=== PATIENT | male | born 1955 | race Caucasian/White ===

== ENCOUNTER 2017-08-08 06:59 | Inpatient (IN) | payer MEDICARE, OTHER ==
[~2017-08-08] VITALS: Ht 177.8 cm; Wt 95.0 kg
[~2017-08-08 06:59] MED LIST: AMIO200T57 PO; APIX5TAB3 PO; ATOR10TA PO; CARV-50 PO; CIPR-230 PO; CLON0.3T PO; CLOP75TA35 PO; DOCU-20 PO; DULO-31 PO; DULO60CA45 PO; FURO-150 PO; HYDR-4069 PO; HYDR-569 PO; INSU100V30 SQ; IPRA3AMP IH; LANTUS SUBCUT; METR500T4 PO; MIRT-92 PO; ONDA4TAB6 PO; PANT40TA39 PO; POTA20TA19 PO; SPIR25TA5 PO
[2017-08-08] MEDS ORDERED: furosemide 10 MG/1 ML 10ml inj IV ONE (07:15)
[2017-08-08] MEDS ORDERED: ipratropium/albuterol 3ml nebule NEB ONE (07:15)
[2017-08-08] MEDS ORDERED: verapamil 2.5 mg/ml inj IV ONE (07:15)
[2017-08-08] MEDS ORDERED: nitroGLYCERIN 0.4mg SUBLingual tab SL PRN (07:15)
[2017-08-08 07:34] LABS: BASOPHILS % (AUTO) 0.3 % (0-1); EOSINOPHILS # (AUTO) 0.1 X10'3 (0-0.9); EOSINOPHILS % (AUTO) 1.6 % (0-6); HEMATOCRIT 45.2 % (42.0-52.0); HEMOGLOBIN 15.3 g/dl (14.0-17.9); LYMPHOCYTES # (AUTO) 0.9 X10'3 (1.1-4.8); LYMPHOCYTES % (AUTO) 13.1 % (21-51); MEAN CORPUSCULAR HEMOGLOBIN 30.7 PG (27.0-31.0); MEAN CORPUSCULAR HGB CONC 33.9 % (33.0-36.5); MEAN CORPUSCULAR VOLUME 90.7 FL (78-98); MEAN PLATELET VOLUME 8.4 FL (7.4-10.4); MONOCYTES % (AUTO) 14.4 % (2-12); NEUTROPHILS % (AUTO) 70.6 % (42-75); PLATELET COUNT 193 X10'3 (140-440); RED BLOOD COUNT 4.98 X10'6 (4.70-6.10); RED CELL DISTRIBUTION WIDTH 16.8 % (11.5-14.5)
[2017-08-08] MEDS ORDERED: LISI10TA4 (07:40)
[2017-08-08] MEDS ORDERED: ATOR40TA (07:40)
[2017-08-08] MEDS ORDERED: CARV25TA2 (07:40)
[2017-08-08] MEDS ORDERED: FURO20TA4 (07:40)
[2017-08-08] MEDS ORDERED: DULO30CA51 (07:40)
[2017-08-08] MEDS ORDERED: CALC500T13 (07:40)
[2017-08-08] MEDS ORDERED: FLO0.4C (07:40)
[2017-08-08] MEDS ORDERED: DOCU-261 (07:40)
[2017-08-08] MEDS ORDERED: MIRT30TA8 (07:40)
[2017-08-08] MEDS ORDERED: OXYC-511 (07:40)
[2017-08-08] MEDS ORDERED: PANT40TA4 (07:40)
[2017-08-08] MEDS ORDERED: ALBU18HF2 (07:40)
[2017-08-08] MEDS ORDERED: ISOS30TA6 (07:40)
[2017-08-08] MEDS ORDERED: NITR0.4T48 (07:40)
[2017-08-08] MEDS ORDERED: BUDE10.2 (07:40)
[2017-08-08 07:41] LABS: ABG BASE EXCESS -2.9 mmol/L (-2.0-3.0); ABG PCO2 (T) 34.3 mmHg (35.0-48.0); ABG PH (T) 7.405 (7.350-7.450); ABG PO2 (T) 91.7 mmHg (83-108); ALLEN'S TEST Positive; FCOHb 0.7 % (0.5-1.5); FLOW 2 L/min; FMetHb 0.1 % (0.3-1.12); FO2Hb 96.2 % (94-100); TOTAL HEMOGLOBIN 15.2 G/dl (14.0-18.0)
[2017-08-08 07:48] LABS: ALANINE AMINOTRANSFERASE 31 U/L (12-78); ALBUMIN 3.6 G/DL (3.4-5.0); ALKALINE PHOSPHATASE 183 IU/L (46-116); ANION GAP 14 (8-16); ASPARTATE AMINO TRANSFERASE 19 U/L (10-37); BILIRUBIN,TOTAL 0.5 MG/DL (0.1-1.0); BLOOD UREA NITROGEN 25 MG/DL (7-18); BUN/CREATININE RATIO 15.8 (5.4-32.0); CALCIUM 8.8 MG/DL (8.5-10.1); CHLORIDE 104 MMOL/L (99-107); CREATININE 1.58 MG/DL (0.60-1.10); GLUCOSE 284 MG/DL (70-104); POTASSIUM 3.6 MMOL/L (3.5-5.1); SODIUM 139 MMOL/L (135-145); TOTAL CARBON DIOXIDE 21.5 MMOL/L (24-32); TOTAL PROTEIN 7.1 G/DL (6.4-8.2); eGFR 45 ML/MIN
[2017-08-08 07:51] LABS: PARTIAL THROMBOPLASTIN TIME 26 SECONDS (22-32); PROTHROMBIN TIME 10.3 SECONDS (9.0-12.0)
[2017-08-08] MEDS ORDERED: heparin 10,000 units/1 ML INJ IV ONE (08:00)
[2017-08-08] MEDS ORDERED: ondansetron/PF 4mg/2ml inj IV PRN (08:20)
[2017-08-08] MEDS ORDERED: magnesium/D5W IVPB 50 ML IV PRN (08:20)
[2017-08-08] MEDS ORDERED: magnesium hydroxide 30ml (MOM) UD suspension PO PRN (08:20)
[2017-08-08] MEDS ORDERED: ipratropium/albuterol 3ml nebule NEB PRN (08:20)
[2017-08-08] MEDS ORDERED: magnesium 4gm in 100ml NS 100 ML IV PRN (08:20)
[2017-08-08] MEDS: K and/or MAG REPLACEMENT MC SCH (08:20)
[2017-08-08] MEDS ORDERED: potassium Cl 20 mEq SR tablet PO PRN ×2 (08:20)
[2017-08-08] MEDS ORDERED: mag hydrox/Alum hydrox/simeth 30ml oral suspension PO PRN (08:20)
[2017-08-08] MEDS ORDERED: potassium Cl 40MEQ/NS 500ml 500 ML IV PRN ×2 (08:20)
[2017-08-08] MEDS ORDERED: acetaminophen 325mg tablet PO PRN (08:20)
[2017-08-08] MEDS ORDERED: amiodarone 200mg tablet PO ONE ×2 (08:25→18:10)
[2017-08-08] MEDS ORDERED: heparin 10,000 units/1 ML INJ IV PRN (08:25)
[2017-08-08 11:00] VITALS: BP 172/108
[2017-08-08] MEDS ORDERED: glucagon, human recombinant 1mg kit SUBCUT PRN (12:45)
[2017-08-08] MEDS ORDERED: MESSAGE TO PHARMACY PO ONE (12:45)
[2017-08-08] MEDS ORDERED: dextrose ORAL solution 15 GM/59 ML bottle PO PRN ×2 (12:45)
[2017-08-08] MEDS ORDERED: dextrose 50%-water 50ml dispensing syringe IV PRN ×2 (12:45)
[2017-08-08 14:29] LABS: HEMOGLOBIN A1C 7.3 % (4.5-6.2)
[2017-08-08] MEDS: insulin Lispro (HumaLOG) vial - multi-dose SQ SCH (14:53)
[2017-08-08 15:00] VITALS: BP 132/82
[2017-08-08 18:00] VITALS: BP 116/48
[2017-08-08] MEDS: apixaban 5mg tablet PO SCH (20:41)
[2017-08-08] MEDS: carVEDilol 12.5mg tablet PO SCH (20:41)
[2017-08-08] MEDS ORDERED: potassium chloride 10mEq ER tablet PO ONE (21:05)
[2017-08-08] MEDS: insulin glargine (Lantus) pen - multi-dose SQ SCH (22:23)
[2017-08-08 22:45] VITALS: BP 125/48
[2017-08-08] MEDS ORDERED: HYDROcodone/acetaminophen 10/325mg tab PO ONE (23:40)
[2017-08-09] MEDS ORDERED: verapamil 2.5 mg/ml inj IV ONE (02:55)
[2017-08-09] MEDS: verapamil SR 120mg (sust. release) tab PO SCH ×2 (03:33→08:15)
[2017-08-09 03:42] VITALS: BP 140/71
[2017-08-09 05:18] LABS: BASOPHILS % (AUTO) 0.4 % (0-1); EOSINOPHILS # (AUTO) 0.1 X10'3 (0-0.9); EOSINOPHILS % (AUTO) 2.3 % (0-6); HEMATOCRIT 42.7 % (42.0-52.0); HEMOGLOBIN 14.3 g/dl (14.0-17.9); LYMPHOCYTES # (AUTO) 0.9 X10'3 (1.1-4.8); LYMPHOCYTES % (AUTO) 14.9 % (21-51); MEAN CORPUSCULAR HEMOGLOBIN 30.4 PG (27.0-31.0); MEAN CORPUSCULAR HGB CONC 33.5 % (33.0-36.5); MEAN CORPUSCULAR VOLUME 90.9 FL (78-98); MEAN PLATELET VOLUME 8.5 FL (7.4-10.4); MONOCYTES % (AUTO) 16.9 % (2-12); NEUTROPHILS # (AUTO) 3.9 X10'3 (1.8-7.7); NEUTROPHILS % (AUTO) 65.5 % (42-75); PLATELET COUNT 192 X10'3 (140-440); RED CELL DISTRIBUTION WIDTH 16.5 % (11.5-14.5)
[2017-08-09 05:53] LABS: ALANINE AMINOTRANSFERASE 23 U/L (12-78); ALBUMIN 3.2 G/DL (3.4-5.0); ALKALINE PHOSPHATASE 139 IU/L (46-116); ANION GAP 11 (8-16); ASPARTATE AMINO TRANSFERASE 18 U/L (10-37); BILIRUBIN,TOTAL 0.5 MG/DL (0.1-1.0); BLOOD UREA NITROGEN 30 MG/DL (7-18); BUN/CREATININE RATIO 20.8 (5.4-32.0); CALCIUM 8.9 MG/DL (8.5-10.1); CHLORIDE 104 MMOL/L (99-107); CHOL/HDL RATIO 4.8 (0.00-4.99); CHOLESTEROL 163 MG/DL (0-200); CREATININE 1.44 MG/DL (0.60-1.10); GLUCOSE 202 MG/DL (70-104); HDL CHOLESTEROL 34 MG/DL (35-60); LDL CHOLESTEROL 100 MG/DL (50-100); MAGNESIUM 2.1 MG/DL (1.5-2.4); SODIUM 140 MMOL/L (135-145); TOTAL CARBON DIOXIDE 25.2 MMOL/L (24-32); TOTAL PROTEIN 6.4 G/DL (6.4-8.2); TRIGLYCERIDES 228 MG/DL (20-135); eGFR 50 ML/MIN
[2017-08-09] MEDS ORDERED: amiodarone 200mg tablet PO SCH (08:00)
[2017-08-09] MEDS: K and/or MAG REPLACEMENT MC SCH (08:00)
[2017-08-09] MEDS: furosemide 40mg/4ml inj IV SCH (08:14)
[2017-08-09] MEDS: carVEDilol 12.5mg tablet PO SCH ×2 (08:15→21:23)
[2017-08-09] MEDS: lisinopril 10 MG tablet PO SCH (08:15)
[2017-08-09] MEDS: clopidogrel 75mg tablet PO SCH (08:15)
[2017-08-09] MEDS: apixaban 5mg tablet PO SCH ×2 (08:15→21:24)
[2017-08-09 09:00] VITALS: BP 140/76
[2017-08-09 11:00] VITALS: BP 97/53
[2017-08-09] MEDS: insulin Lispro (HumaLOG) vial - multi-dose SQ SCH (13:41)
[2017-08-09 15:00] VITALS: BP 120/70
[2017-08-09 19:00] VITALS: BP 103/47
[2017-08-09] MEDS: tamsulosin 0.4mg capsule PO SCH (21:00)
[2017-08-09] MEDS: amiodarone 200mg tablet PO SCH (21:23)
[2017-08-09] MEDS: insulin glargine (Lantus) pen - multi-dose SQ SCH (21:28)
[2017-08-09 23:00] VITALS: BP 102/52
[2017-08-10] VITALS (7 sets, daily range): BP systolic 82–123; BP diastolic 50–73
[2017-08-10 07:47] LABS: BASOPHILS % (AUTO) 0.4 % (0-1); EOSINOPHILS # (AUTO) 0.1 X10'3 (0-0.9); EOSINOPHILS % (AUTO) 1.8 % (0-6); HEMATOCRIT 40.2 % (42.0-52.0); HEMOGLOBIN 13.3 g/dl (14.0-17.9); LYMPHOCYTES # (AUTO) 1.1 X10'3 (1.1-4.8); LYMPHOCYTES % (AUTO) 14.1 % (21-51); MEAN CORPUSCULAR HEMOGLOBIN 30.1 PG (27.0-31.0); MEAN CORPUSCULAR HGB CONC 33.2 % (33.0-36.5); MEAN CORPUSCULAR VOLUME 90.8 FL (78-98); MEAN PLATELET VOLUME 8.3 FL (7.4-10.4); MONOCYTES # (AUTO) 1.3 X10'3 (0-0.9); MONOCYTES % (AUTO) 16.4 % (2-12); NEUTROPHILS # (AUTO) 5.5 X10'3 (1.8-7.7); NEUTROPHILS % (AUTO) 67.3 % (42-75); PLATELET COUNT 191 X10'3 (140-440); RED BLOOD COUNT 4.43 X10'6 (4.70-6.10); WHITE BLOOD COUNT 8.1 X10'3 (4.5-11.0)
[2017-08-10] MEDS: K and/or MAG REPLACEMENT MC SCH (08:00)
[2017-08-10 08:04] LABS: ALANINE AMINOTRANSFERASE 22 U/L (12-78); ALKALINE PHOSPHATASE 123 IU/L (46-116); ANION GAP 11 (8-16); ASPARTATE AMINO TRANSFERASE 19 U/L (10-37); BILIRUBIN,TOTAL 0.6 MG/DL (0.1-1.0); BLOOD UREA NITROGEN 67 MG/DL (7-18); BUN/CREATININE RATIO 29.4 (5.4-32.0); CALCIUM 8.8 MG/DL (8.5-10.1); CHLORIDE 100 MMOL/L (99-107); CREATININE 2.28 MG/DL (0.60-1.10); GLUCOSE 131 MG/DL (70-104); MAGNESIUM 2.5 MG/DL (1.5-2.4); POTASSIUM 4.3 MMOL/L (3.5-5.1); SODIUM 137 MMOL/L (135-145); TOTAL CARBON DIOXIDE 26.4 MMOL/L (24-32); eGFR 29 ML/MIN
[2017-08-10] MEDS: amiodarone 200mg tablet PO SCH ×2 (08:58→19:58)
[2017-08-10] MEDS: verapamil SR 120mg (sust. release) tab PO SCH (08:58)
[2017-08-10] MEDS: clopidogrel 75mg tablet PO SCH (08:58)
[2017-08-10] MEDS: furosemide 40mg/4ml inj IV SCH (08:58)
[2017-08-10] MEDS: lisinopril 10 MG tablet PO SCH (08:59)
[2017-08-10] MEDS: docusate sod 100mg capsule PO SCH ×2 (08:59→19:58)
[2017-08-10] MEDS: carVEDilol 12.5mg tablet PO SCH ×2 (08:59→19:58)
[2017-08-10] MEDS: apixaban 5mg tablet PO SCH ×2 (08:59→19:58)
[2017-08-10] MEDS: insulin Lispro (HumaLOG) vial - multi-dose SQ SCH ×2 (09:50→20:09)
[2017-08-10] MEDS: insulin glargine (Lantus) pen - multi-dose SQ SCH (20:09)
[2017-08-10] MEDS: tamsulosin 0.4mg capsule PO SCH (20:10)
[2017-08-11] VITALS (7 sets, daily range): BP systolic 91–140; BP diastolic 41–92
[2017-08-11 05:09] LABS: BASOPHILS % (AUTO) 0.1 % (0-1); EOSINOPHILS # (AUTO) 0.2 X10'3 (0-0.9); EOSINOPHILS % (AUTO) 2.4 % (0-6); HEMATOCRIT 37.3 % (42.0-52.0); HEMOGLOBIN 12.7 g/dl (14.0-17.9); LYMPHOCYTES # (AUTO) 0.9 X10'3 (1.1-4.8); LYMPHOCYTES % (AUTO) 13.8 % (21-51); MEAN CORPUSCULAR HEMOGLOBIN 30.6 PG (27.0-31.0); MEAN CORPUSCULAR HGB CONC 34.2 % (33.0-36.5); MEAN CORPUSCULAR VOLUME 89.6 FL (78-98); MEAN PLATELET VOLUME 8.5 FL (7.4-10.4); MONOCYTES # (AUTO) 1.1 X10'3 (0-0.9); MONOCYTES % (AUTO) 16.9 % (2-12); NEUTROPHILS # (AUTO) 4.4 X10'3 (1.8-7.7); NEUTROPHILS % (AUTO) 66.8 % (42-75); PLATELET COUNT 173 X10'3 (140-440); RED BLOOD COUNT 4.16 X10'6 (4.70-6.10); RED CELL DISTRIBUTION WIDTH 16.3 % (11.5-14.5); WHITE BLOOD COUNT 6.5 X10'3 (4.5-11.0)
[2017-08-11 05:32] LABS: ALANINE AMINOTRANSFERASE 21 U/L (12-78); ALBUMIN 2.8 G/DL (3.4-5.0); ALBUMIN/GLOBULIN RATIO 0.9 (1.1-1.5); ALKALINE PHOSPHATASE 124 IU/L (46-116); ANION GAP 10 (8-16); ASPARTATE AMINO TRANSFERASE 12 U/L (10-37); BILIRUBIN,TOTAL 0.4 MG/DL (0.1-1.0); BLOOD UREA NITROGEN 88 MG/DL (7-18); BUN/CREATININE RATIO 39.1 (5.4-32.0); CALCIUM 8.6 MG/DL (8.5-10.1); CHLORIDE 100 MMOL/L (99-107); CREATININE 2.25 MG/DL (0.60-1.10); GLUCOSE 115 MG/DL (70-104); MAGNESIUM 2.6 MG/DL (1.5-2.4); POTASSIUM 4.3 MMOL/L (3.5-5.1); SODIUM 136 MMOL/L (135-145); TOTAL PROTEIN 5.8 G/DL (6.4-8.2); eGFR 30 ML/MIN
[2017-08-11] MEDS: K and/or MAG REPLACEMENT MC SCH (08:00)
[2017-08-11] MEDS ORDERED: lisinopril 2.5mg tablet PO SCH (08:00)
[2017-08-11] MEDS ORDERED: furosemide 40mg/4ml inj IV SCH (08:00)
[2017-08-11] MEDS: clopidogrel 75mg tablet PO SCH (09:43)
[2017-08-11] MEDS: apixaban 5mg tablet PO SCH ×2 (09:43→20:16)
[2017-08-11] MEDS: carVEDilol 12.5mg tablet PO SCH ×2 (09:44→20:17)
[2017-08-11] MEDS: verapamil SR 120mg (sust. release) tab PO SCH (09:44)
[2017-08-11] MEDS: docusate sod 100mg capsule PO SCH ×2 (09:44→20:16)
[2017-08-11] MEDS: amiodarone 200mg tablet PO SCH ×2 (09:44→20:17)
[2017-08-11] MEDS: insulin Lispro (HumaLOG) vial - multi-dose SQ SCH (19:29)
[2017-08-11] MEDS: tamsulosin 0.4mg capsule PO SCH (20:16)
[2017-08-11] MEDS: insulin glargine (Lantus) pen - multi-dose SQ SCH (21:00)
[2017-08-12] MEDS: insulin glargine (Lantus) pen - multi-dose SQ SCH (00:51)
[2017-08-12 03:00] VITALS: BP 142/70
[2017-08-12 05:26] LABS: BASOPHILS % (AUTO) 0.4 % (0-1); EOSINOPHILS % (AUTO) 0 % (0-6); HEMATOCRIT 40.4 % (42.0-52.0); HEMOGLOBIN 13.6 g/dl (14.0-17.9); LYMPHOCYTES % (AUTO) 14.4 % (21-51); MEAN CORPUSCULAR HEMOGLOBIN 30.5 PG (27.0-31.0); MEAN CORPUSCULAR HGB CONC 33.5 % (33.0-36.5); MEAN CORPUSCULAR VOLUME 90.9 FL (78-98); MEAN PLATELET VOLUME 9.1 FL (7.4-10.4); MONOCYTES # (AUTO) 1.2 X10'3 (0-0.9); MONOCYTES % (AUTO) 17.1 % (2-12); NEUTROPHILS # (AUTO) 4.7 X10'3 (1.8-7.7); NEUTROPHILS % (AUTO) 68.1 % (42-75); PLATELET COUNT 191 X10'3 (140-440); RED BLOOD COUNT 4.45 X10'6 (4.70-6.10); RED CELL DISTRIBUTION WIDTH 16.3 % (11.5-14.5); WHITE BLOOD COUNT 6.9 X10'3 (4.5-11.0)
[2017-08-12 06:00] VITALS: BP 105/49
[2017-08-12 06:17] LABS: ALANINE AMINOTRANSFERASE 31 U/L (12-78); ALBUMIN 3.1 G/DL (3.4-5.0); ALBUMIN/GLOBULIN RATIO 0.9 (1.1-1.5); ALKALINE PHOSPHATASE 130 IU/L (46-116); ANION GAP 9 (8-16); ASPARTATE AMINO TRANSFERASE 17 U/L (10-37); BILIRUBIN,TOTAL 0.4 MG/DL (0.1-1.0); BLOOD UREA NITROGEN 83 MG/DL (7-18); BUN/CREATININE RATIO 44.6 (5.4-32.0); CALCIUM 8.6 MG/DL (8.5-10.1); CHLORIDE 102 MMOL/L (99-107); CREATININE 1.86 MG/DL (0.60-1.10); GLUCOSE 117 MG/DL (70-104); MAGNESIUM 2.6 MG/DL (1.5-2.4); POTASSIUM 4.5 MMOL/L (3.5-5.1); SODIUM 136 MMOL/L (135-145); TOTAL CARBON DIOXIDE 24.6 MMOL/L (24-32); TOTAL PROTEIN 6.4 G/DL (6.4-8.2); eGFR 37 ML/MIN
[2017-08-12] MEDS: carVEDilol 12.5mg tablet PO SCH (07:44)
[2017-08-12] MEDS: clopidogrel 75mg tablet PO SCH (07:46)
[2017-08-12] MEDS: apixaban 5mg tablet PO SCH (07:46)
[2017-08-12] MEDS: verapamil SR 120mg (sust. release) tab PO SCH (07:47)
[2017-08-12] MEDS: amiodarone 200mg tablet PO SCH (07:47)
[2017-08-12] MEDS: docusate sod 100mg capsule PO SCH (07:47)
[2017-08-12] MEDS ORDERED: atorvastatin 20mg tablet PO SCH (08:00)
[2017-08-12] MEDS: K and/or MAG REPLACEMENT MC SCH (08:00)
[2017-08-12 11:00] VITALS: BP 120/70
[2017-08-12 15:00] VITALS: BP 125/60
== END 2017-08-12 19:00 | disposition left against medical advice (07) | DRG 280 ==
LOC: ER 07:00 → ED HOLD 08:16 → EDBEDREQ 09:10 → PCU 3S 09:30
PROVIDERS: ADMIT Family Medicine; ATTEND Family Medicine
DX: I21.4 Non-ST elevation (NSTEMI) myocardial infarction (principal); I50.23 Acute on chronic systolic (congestive) heart failure; N17.9 Acute kidney failure, unspecified; I13.0 Hypertensive heart and chronic kidney disease with heart failure and stage 1 through stage 4 chronic kidney disease, or unspecified chronic kidney disease; I25.119 Atherosclerotic heart disease of native coronary artery with unspecified angina pectoris; N18.9 Chronic kidney disease, unspecified; I70.1 Atherosclerosis of renal artery; E11.22 Type 2 diabetes mellitus with diabetic chronic kidney disease; E78.5 Hyperlipidemia, unspecified; I48.2 Chronic atrial fibrillation; E11.51 Type 2 diabetes mellitus with diabetic peripheral angiopathy without gangrene; I95.9 Hypotension, unspecified; E11.65 Type 2 diabetes mellitus with hyperglycemia; E78.00 Pure hypercholesterolemia, unspecified; J44.9 Chronic obstructive pulmonary disease, unspecified; G89.29 Other chronic pain; F41.9 Anxiety disorder, unspecified; F31.9 Bipolar disorder, unspecified; K21.9 Gastro-esophageal reflux disease without esophagitis; I07.1 Rheumatic tricuspid insufficiency; Z53.21 Procedure and treatment not carried out due to patient leaving prior to being seen by health care provider; I25.2 Old myocardial infarction; Z95.5 Presence of coronary angioplasty implant and graft; Z95.1 Presence of aortocoronary bypass graft; Z88.5 Allergy status to narcotic agent; Z79.4 Long term (current) use of insulin; Z79.01 Long term (current) use of anticoagulants; Z79.899 Other long term (current) drug therapy; Z87.891 Personal history of nicotine dependence; Z86.73 Personal history of transient ischemic attack (TIA), and cerebral infarction without residual deficits; Z85.01 Personal history of malignant neoplasm of esophagus; Z82.49 Family history of ischemic heart disease and other diseases of the circulatory system
CPT/HCPCS: 36415; 36600; 71045; 80053; 80061; 82803; 82948; 83036; 83735; 83880; 84439; 84443; 84484; 85018; 85025; 85610; 85730; 93005; 93975; 94640; 94760; 96374; 96375; 99291; J1644; J1815; J1940

== ENCOUNTER 2018-06-20 14:11 | Emergency (ER) | payer MEDICARE, OTHER ==
[~2018-06-20] VITALS: Ht 177.8 cm; Wt 189.0 kg
[~2018-06-20 14:11] MED LIST changes: +ALBU18HF2; +AMIO200T40 PO; -AMIO200T57 PO; -ATOR10TA PO; +ATOR40TA; +BUDE10.2; +CALC500T13; -CARV-50 PO; +CARV25TA2; -CIPR-230 PO; -DOCU-20 PO; +DOCU-261; -DULO60CA45 PO; -HYDR-569 PO; -IPRA3AMP IH; +IPRA3AMP31 IH; +LISI10TA4; -METR500T4 PO; +NITR0.4T48; +OXYC-511
[2018-06-20 14:22] VITALS: BP 147/44
== END 2018-06-20 15:59 | disposition home or self-care (01) ==
LOC: ER 14:12
DX: S61.012A Laceration without foreign body of left thumb without damage to nail, initial encounter (principal); I48.91 Unspecified atrial fibrillation; I25.10 Atherosclerotic heart disease of native coronary artery without angina pectoris; I11.0 Hypertensive heart disease with heart failure; I50.9 Heart failure, unspecified; E78.00 Pure hypercholesterolemia, unspecified; I25.2 Old myocardial infarction; J44.9 Chronic obstructive pulmonary disease, unspecified; E11.9 Type 2 diabetes mellitus without complications; G89.29 Other chronic pain; F12.90 Cannabis use, unspecified, uncomplicated; Z98.61 Coronary angioplasty status; Z95.1 Presence of aortocoronary bypass graft; Z98.890 Other specified postprocedural states; Z60.2 Problems related to living alone; Z88.5 Allergy status to narcotic agent; Z91.018 Allergy to other foods; Z79.4 Long term (current) use of insulin; Z79.899 Other long term (current) drug therapy; Z86.73 Personal history of transient ischemic attack (TIA), and cerebral infarction without residual deficits; W22.8XXA Striking against or struck by other objects, initial encounter; Y93.89 Activity, other specified; Y92.89 Other specified places as the place of occurrence of the external cause; Y99.8 Other external cause status
CPT/HCPCS: 12001; 99283